=== PATIENT | female | born 1985 | race Hispanic/Latino ===

== ENCOUNTER 2021-03-21 13:42 | Emergency (ER) | payer SELFPAY ==
[2021-03-21 14:28] LABS: Bilirubin Neg (Negative); Blood, Urine 250 (Negative); Clarity Cloudy (Clear); Glucose, Urine (Dipstick) Normal (Negative); Ketone, Urine Negative (Negative); Leukocyte 500 (Negative); Nitrite Negative (Negative); Protein, Urine (Dipstick) 100 mg/dl (Neg-Trace); Specific Gravity, Urine 1.015 (1.002-1.036)
[2021-03-21 14:33] LABS: Bacteria/HPF 1+ HPF (None Seen); Mucous/LPF 2+ LPF (<2+); RBC/HPF Greater than 50 HPF (0-3); WBC/HPF Greater than 50 HPF (0-3)
[2021-03-21 15:15] LABS: Pregu Control Background? CLEAR/WHITE (CLR/WHITE); Pregu Control Bar Appear? YES (CONTROL BAR)
[2021-03-21 15:16] LABS: Specific Gravity 1.015 (1.002-1.036)
[2021-03-21 15:19] LABS: Pregnancy Test - Urine (BHCG) Negative (Negative)
[2021-03-21] MEDS ORDERED: cefTRIAXone\\ROCEPHIN 1 GM VIAL ONE (15:42)
[2021-03-21] MEDS ORDERED: Sterile Water 10 ML ONE (15:42)
== END 2021-03-21 16:09 | disposition home or self-care (01) ==
LOC: CSHERS 13:42
DX: N30.01 Acute cystitis with hematuria (principal)
CPT/HCPCS: 81003; 81015; 81025; 87077; 87086; 87186; 96372; 99283; J0696